=== PATIENT | female | born 1935 | race Hispanic/Latino ===

== ENCOUNTER 2020-06-04 13:37 | Inpatient (IN) | payer MEDICARE, OTHER ==
[~2020-06-04] VITALS: Ht 152.4 cm; Wt 70.3 kg
[~2020-06-04 13:37] MED LIST: AMLODIPINE BES2.5 MG PO; CYANOCOBAL1000 MCG/M; HYZAAR 100-12.1 EACH PO; IBUPROFEN600 MG PO; LEVOTHYROXINE75 MCG PO; LO-DOSE ASPIRIN81 MG PO; LOVASTATIN20 MG PO; METFORMIN HCL500 MG PO
[2020-06-04] MEDS ORDERED: PIPERACILLIN/TAZO 4.5 GM 100 ML IV STA (13:40)
[2020-06-04 14:32] LABS: BASOPHILS % 0.3 % (0.0-1.0); EOSINOPHILS # (AUTO) 0.2 (0.0-0.4); EOSINOPHILS % 1.3 % (0.0-6.0); HEMATOCRIT 42.5 % (34.2-44.1); HEMOGLOBIN 12.7 g/dL (12.0-16.0); MEAN CORPUSCULAR HEMOGLOBIN 27.7 pg (28-32); MEAN CORPUSCULAR HGB CONC 29.9 g/dL (31-35); MEAN CORPUSCULAR VOLUME 92.6 fL (81-99); MONOCYTES # (AUTO) 0.7 (0.2-0.8); MONOCYTES % 5.4 % (4.4-11.3); NEUTROPHILS # (AUTO) 9.8 (2.1-6.9); NEUTROPHILS % 76.6 % (38.7-80.0); PLATELET COUNT 252 x10e3/uL (140-360); RED BLOOD COUNT 4.59 x10e6/uL (3.6-5.1); RED CELL DISTRIBUTION WIDTH 15.1 % (11.7-14.4)
[2020-06-04 14:45] LABS: ALBUMIN 2.7 g/dL (3.5-5.0); ALBUMIN/GLOBULIN RATIO 0.6 (0.8-2.0); ANION GAP 13.6 mmol/L (8-16); CALCIUM 8.6 mg/dL (8.4-10.2); CREATININE, SERUM 1.05 mg/dL (0.57-1.11); POTASSIUM 3.6 mmol/L (3.5-5.1)
[2020-06-04] MEDS: VANCOMYCIN 750MG/NS 150ML IVPB 150 ML IV SCH (15:00)
[2020-06-04] MEDS ORDERED: SODIUM CHLORIDE 0.9% 500ML 500 ML IV ONE (15:15)
[2020-06-04] MEDS ORDERED: SODIUM CHLORIDE 0.9% 50ML 50 ML ONE (15:39)
[2020-06-04] MEDS ORDERED: IOPAMIDOL 370 MG/ML 200 ML INFUS..BTL INJ ONE (15:40)
[2020-06-04 18:29] LABS: BILIRUBIN,URINE NEGATIVE (NEGATIVE); CLARITY,URINE HAZY (CLEAR); COLOR,URINE YELLOW (YELLOW); KETONES,URINE NEGATIVE (NEGATIVE); LEUKOCYTE ESTERASE ,URINE SMALL (NEGATIVE); NITRITE,URINE POSITIVE (NEGATIVE); PROTEIN,URINE DIPSTICK 2+ (NEGATIVE); URINE UROBILINOGEN 0.2 mg/dL (0.2 - 1)
[2020-06-04 18:41] LABS: BACTERIA,URINE MANY /HPF; EPITHELIAL CELLS,URINE RARE /LPF
[2020-06-04 18:50] VITALS: BP 125/102
[2020-06-04 20:00] VITALS: BP 125/102
[2020-06-04] MEDS ORDERED: DEXTROSE 50% SYRINGE 50 ML IV PRN (20:45)
[2020-06-04] MEDS: INSULIN LISPRO 100 UNIT/1 ML 3ML VIAL SQ SCH (21:45)
[2020-06-05] VITALS (7 sets, daily range): BP systolic 117–154; BP diastolic 47–114
[2020-06-05] MEDS: ACETAMINOPHEN 325 MG TAB PO PRN ×3 (00:53→20:57)
[2020-06-05] MEDS ORDERED: SODIUM CHLORIDE 0.9% 250ML 250 ML ONE (01:31)
[2020-06-05] MEDS: VANCOMYCIN 750MG/NS 150ML IVPB 150 ML IV SCH ×2 (01:37→14:02)
[2020-06-05 05:12] LABS: BASOPHILS # (AUTO) 0.1 (0.0-0.1); BASOPHILS % 0.4 % (0.0-1.0); EOSINOPHILS # (AUTO) 0.1 (0.0-0.4); EOSINOPHILS % 0.7 % (0.0-6.0); HEMATOCRIT 38.7 % (34.2-44.1); HEMOGLOBIN 11.4 g/dL (12.0-16.0); LYMPHOCYTES # (AUTO) 1.5 (1.0-3.2); LYMPHOCYTES % 11.9 % (18.0-39.1); MEAN CORPUSCULAR HEMOGLOBIN 27.3 pg (28-32); MEAN CORPUSCULAR HGB CONC 29.5 g/dL (31-35); MEAN CORPUSCULAR VOLUME 92.6 fL (81-99); MONOCYTES # (AUTO) 0.8 (0.2-0.8); MONOCYTES % 6.2 % (4.4-11.3); NEUTROPHILS # (AUTO) 10.2 (2.1-6.9); NEUTROPHILS % 80.4 % (38.7-80.0); PLATELET COUNT 211 x10e3/uL (140-360); RED BLOOD COUNT 4.18 x10e6/uL (3.6-5.1); RED CELL DISTRIBUTION WIDTH 14.9 % (11.7-14.4)
[2020-06-05 05:32] LABS: ANION GAP 10.6 mmol/L (8-16); CALCIUM 8.1 mg/dL (8.4-10.2); CREATININE, SERUM 0.97 mg/dL (0.57-1.11); POTASSIUM 3.6 mmol/L (3.5-5.1)
[2020-06-05] MEDS: LEVOTHYROXINE SODIUM 75 MCG TAB PO SCH (07:30)
[2020-06-05] MEDS: INSULIN LISPRO 100 UNIT/1 ML 3ML VIAL SQ SCH ×4 (07:30→21:00)
[2020-06-05] MEDS: ASPIRIN 81 MG ENTERIC COATED PO SCH (09:00)
[2020-06-05] MEDS: LOSARTAN POTASSIUM 100 MG TAB PO SCH (09:00)
[2020-06-05] MEDS: HYDROCHLOROTHIAZIDE 25 MG TAB PO SCH (09:00)
[2020-06-05] MEDS: AMLODIPINE BESYLATE 5 MG TAB PO SCH (09:00)
[2020-06-05] MEDS ORDERED: SODIUM HYPOCHLORITE 0.25% 480 ML SOLN IR ONE (10:00)
[2020-06-05] MEDS ORDERED: METOPROLOL SUCC25 MG PO (12:16)
[2020-06-05] MEDS ORDERED: SEROQUEL50 MG PO (12:16)
[2020-06-05] MEDS ORDERED: GABAPENTIN100 MG PO (12:16)
[2020-06-05] MEDS ORDERED: CEFTRIAXONE SOD 1 GM/NS 50 ML 50 ML IV SCH (15:30)
[2020-06-05] MEDS: SIMVASTATIN 20 MG TAB PO SCH (20:56)
[2020-06-05] MEDS: QUETIAPINE FUMARATE 25 MG TAB PO PRN (20:56)
[2020-06-06] VITALS (7 sets, daily range): BP systolic 125–158; BP diastolic 38–99
[2020-06-06] MEDS: CEFTRIAXONE SOD 1 GM/NS 50 ML 50 ML IV SCH (01:00)
[2020-06-06] MEDS: VANCOMYCIN 750MG/NS 150ML IVPB 150 ML IV SCH ×2 (02:22→14:56)
[2020-06-06] MEDS: INSULIN LISPRO 100 UNIT/1 ML 3ML VIAL SQ SCH ×4 (07:30→21:00)
[2020-06-06] MEDS: LOSARTAN POTASSIUM 100 MG TAB PO SCH (09:21)
[2020-06-06] MEDS: LEVOTHYROXINE SODIUM 75 MCG TAB PO SCH (09:21)
[2020-06-06] MEDS: ASPIRIN 81 MG ENTERIC COATED PO SCH (09:21)
[2020-06-06] MEDS: QUETIAPINE FUMARATE 25 MG TAB PO PRN ×2 (09:22→20:59)
[2020-06-06] MEDS: HYDROCHLOROTHIAZIDE 25 MG TAB PO SCH (09:22)
[2020-06-06] MEDS: AMLODIPINE BESYLATE 5 MG TAB PO SCH (09:22)
[2020-06-06] MEDS ORDERED: LORAZEPAM INJ 2 MG/ML VIAL IV ONE (12:15)
[2020-06-06] MEDS: SIMVASTATIN 20 MG TAB PO SCH (20:59)
[2020-06-06] MEDS: ACETAMINOPHEN 325 MG TAB PO PRN (20:59)
[2020-06-07] VITALS (8 sets, daily range): BP systolic 101–149; BP diastolic 53–73
[2020-06-07] MEDS: CEFTRIAXONE SOD 1 GM/NS 50 ML 50 ML IV SCH (01:00)
[2020-06-07] MEDS: VANCOMYCIN 750MG/NS 150ML IVPB 150 ML IV SCH ×2 (02:00→14:00)
[2020-06-07] MEDS: LEVOTHYROXINE SODIUM 75 MCG TAB PO SCH (07:30)
[2020-06-07] MEDS: LOSARTAN POTASSIUM 100 MG TAB PO SCH (09:22)
[2020-06-07] MEDS: HYDROCHLOROTHIAZIDE 25 MG TAB PO SCH (09:22)
[2020-06-07] MEDS: ASPIRIN 81 MG ENTERIC COATED PO SCH (09:22)
[2020-06-07] MEDS: AMLODIPINE BESYLATE 5 MG TAB PO SCH (09:22)
[2020-06-07] MEDS: INSULIN LISPRO 100 UNIT/1 ML 3ML VIAL SQ SCH ×4 (10:35→21:00)
[2020-06-07 14:18] LABS: ALBUMIN 2.4 g/dL (3.5-5.0); ALBUMIN/GLOBULIN RATIO 0.6 (0.8-2.0); ANION GAP 14.5 mmol/L (8-16); CALCIUM 8.2 mg/dL (8.4-10.2); CREATININE, SERUM 1.1 mg/dL (0.57-1.11); POTASSIUM 3.5 mmol/L (3.5-5.1)
[2020-06-07 15:09] LABS: BASOPHILS # (AUTO) 0.1 (0.0-0.1); BASOPHILS % 0.4 % (0.0-1.0); EOSINOPHILS # (AUTO) 0.6 (0.0-0.4); EOSINOPHILS % 4.1 % (0.0-6.0); HEMATOCRIT 37.6 % (34.2-44.1); HEMOGLOBIN 10.8 g/dL (12.0-16.0); LYMPHOCYTES # (AUTO) 1.4 (1.0-3.2); LYMPHOCYTES % 9.7 % (18.0-39.1); MEAN CORPUSCULAR HEMOGLOBIN 27.3 pg (28-32); MEAN CORPUSCULAR HGB CONC 28.7 g/dL (31-35); MEAN CORPUSCULAR VOLUME 95.2 fL (81-99); MONOCYTES # (AUTO) 0.8 (0.2-0.8); MONOCYTES % 5.5 % (4.4-11.3); NEUTROPHILS # (AUTO) 11.6 (2.1-6.9); NEUTROPHILS % 79.7 % (38.7-80.0); PLATELET COUNT 179 x10e3/uL (140-360); RED BLOOD COUNT 3.95 x10e6/uL (3.6-5.1); RED CELL DISTRIBUTION WIDTH 15.3 % (11.7-14.4)
[2020-06-07] MEDS: SIMVASTATIN 20 MG TAB PO SCH (21:00)
[2020-06-08] VITALS (7 sets, daily range): BP systolic 139–168; BP diastolic 68–100
[2020-06-08] MEDS: CEFTRIAXONE SOD 1 GM/NS 50 ML 50 ML IV SCH (00:22)
[2020-06-08] MEDS: SODIUM HYPOCHLORITE 0.25% 480 ML SOLN IR SCH ×2 (03:00→09:00)
[2020-06-08] MEDS: LEVOTHYROXINE SODIUM 75 MCG TAB PO SCH (07:30)
[2020-06-08] MEDS: INSULIN LISPRO 100 UNIT/1 ML 3ML VIAL SQ SCH ×4 (07:30→21:00)
[2020-06-08] MEDS: AMLODIPINE BESYLATE 5 MG TAB PO SCH (08:49)
[2020-06-08] MEDS: LOSARTAN POTASSIUM 100 MG TAB PO SCH (08:49)
[2020-06-08] MEDS: ASPIRIN 81 MG ENTERIC COATED PO SCH (08:49)
[2020-06-08] MEDS: SODIUM CHLORIDE 0.9% 1000ML 1,000 ML IV SCH (14:39)
[2020-06-08] MEDS: SIMVASTATIN 20 MG TAB PO SCH (21:00)
[2020-06-09] VITALS (9 sets, daily range): BP systolic 68–170; BP diastolic 35–124
[2020-06-09] MEDS: CEFTRIAXONE SOD 1 GM/NS 50 ML 50 ML IV SCH (01:00)
[2020-06-09] MEDS: SODIUM CHLORIDE 0.9% 1000ML 1,000 ML IV SCH ×2 (03:50→15:25)
[2020-06-09 05:36] LABS: ANION GAP 11.1 mmol/L (8-16); BLOOD UREA NITROGEN 12 mg/dL (7-26); BUN/CREATININE RATIO 15 (6-25); CALCIUM 8.3 mg/dL (8.4-10.2); CARBON DIOXIDE 23 mmol/L (22-29); CHLORIDE 120 mmol/L (98-107); CREATININE, SERUM 0.81 mg/dL (0.57-1.11); EST GLOMERULAR FILTRATION RATE > 60 ML/MIN (60-); GLUCOSE 122 mg/dL (74-118); POTASSIUM 3.1 mmol/L (3.5-5.1); SODIUM 151 mmol/L (136-145)
[2020-06-09] MEDS: INSULIN LISPRO 100 UNIT/1 ML 3ML VIAL SQ SCH ×4 (07:30→21:00)
[2020-06-09 09:20] LABS: HEMATOCRIT 40.1 % (34.2-44.1); HEMOGLOBIN 11.9 g/dL (12.0-16.0); MEAN CORPUSCULAR HEMOGLOBIN 27.9 pg (28-32); MEAN CORPUSCULAR HGB CONC 29.7 g/dL (31-35); MEAN CORPUSCULAR VOLUME 94.1 fL (81-99); PLATELET COUNT 187 x10e3/uL (140-360); RED BLOOD COUNT 4.26 x10e6/uL (3.6-5.1); RED CELL DISTRIBUTION WIDTH 15.4 % (11.7-14.4)
[2020-06-09] MEDS ORDERED: POTASSIUM CHLORIDE 20 MEQ TAB CR PO ONE (09:35)
[2020-06-09] MEDS: LEVOTHYROXINE SODIUM 75 MCG TAB PO SCH (09:39)
[2020-06-09] MEDS: AMLODIPINE BESYLATE 5 MG TAB PO SCH (09:39)
[2020-06-09] MEDS: ASPIRIN 81 MG ENTERIC COATED PO SCH (09:39)
[2020-06-09] MEDS: LOSARTAN POTASSIUM 100 MG TAB PO SCH (09:39)
[2020-06-09 09:52] LABS: ANISOCYTOSIS SLIGHT; EOSINOPHILS % (MANUAL) 4 % (0-7); LYMPHOCYTES % (MANUAL) 15 % (19-48); MONOCYTES % (MANUAL) 2 % (3.4-9.0); NEUTROPHILS % (MANUAL) 75 % (40-74); PLATELET ESTIMATE ADEQUATE; PLATELET MORPHOLOGY COMMENT NORMAL; RBC MORPHOLOGY COMMENT NORMAL
[2020-06-09] MEDS: SODIUM HYPOCHLORITE 0.25% 480 ML SOLN IR SCH (10:30)
[2020-06-09] MEDS: CIPROFLOXACIN 500 MG TAB PO SCH (14:55)
[2020-06-09] MEDS: DOXYCYCLINE HYCLATE TABLET 100 MG TAB PO SCH (17:12)
[2020-06-09] MEDS: SIMVASTATIN 20 MG TAB PO SCH (22:07)
[2020-06-09] MEDS: ENOXAPARIN SOD INJ 40 MG/0.4 ML SYR SC SCH (22:09)
[2020-06-10] VITALS (8 sets, daily range): BP systolic 113–155; BP diastolic 56–77
[2020-06-10] MEDS: SODIUM CHLORIDE 0.9% 1000ML 1,000 ML IV SCH ×2 (04:45→18:05)
[2020-06-10 07:26] LABS: ANION GAP 10.5 mmol/L (8-16); CALCIUM 8.4 mg/dL (8.4-10.2); CREATININE, SERUM 0.93 mg/dL (0.57-1.11); POTASSIUM 3.5 mmol/L (3.5-5.1)
[2020-06-10] MEDS: INSULIN LISPRO 100 UNIT/1 ML 3ML VIAL SQ SCH ×4 (08:00→20:18)
[2020-06-10] MEDS: LEVOTHYROXINE SODIUM 75 MCG TAB PO SCH (09:58)
[2020-06-10] MEDS: ASPIRIN 81 MG ENTERIC COATED PO SCH (09:59)
[2020-06-10] MEDS: LOSARTAN POTASSIUM 100 MG TAB PO SCH (09:59)
[2020-06-10] MEDS: AMLODIPINE BESYLATE 5 MG TAB PO SCH (09:59)
[2020-06-10] MEDS: DOXYCYCLINE HYCLATE TABLET 100 MG TAB PO SCH ×2 (09:59→21:00)
[2020-06-10] MEDS: CIPROFLOXACIN 500 MG TAB PO SCH (09:59)
[2020-06-10] MEDS: SODIUM HYPOCHLORITE 0.25% 480 ML SOLN IR SCH (10:00)
[2020-06-10] MEDS: ENOXAPARIN SOD INJ 40 MG/0.4 ML SYR SC SCH (17:17)
[2020-06-11] VITALS (8 sets, daily range): BP systolic 151–161; BP diastolic 54–98
[2020-06-11] MEDS: SIMVASTATIN 20 MG TAB PO SCH ×2 (00:16→20:46)
[2020-06-11] MEDS: SODIUM CHLORIDE 0.9% 1000ML 1,000 ML IV SCH (06:22)
[2020-06-11] MEDS: INSULIN LISPRO 100 UNIT/1 ML 3ML VIAL SQ SCH ×4 (07:30→21:00)
[2020-06-11] MEDS: CIPROFLOXACIN 500 MG TAB PO SCH (09:30)
[2020-06-11] MEDS: ASPIRIN 81 MG ENTERIC COATED PO SCH (09:30)
[2020-06-11] MEDS: LOSARTAN POTASSIUM 100 MG TAB PO SCH (09:30)
[2020-06-11] MEDS: LEVOTHYROXINE SODIUM 75 MCG TAB PO SCH (09:30)
[2020-06-11] MEDS: AMLODIPINE BESYLATE 5 MG TAB PO SCH (09:31)
[2020-06-11] MEDS: DOXYCYCLINE HYCLATE TABLET 100 MG TAB PO SCH ×2 (09:31→20:46)
[2020-06-11] MEDS: SODIUM HYPOCHLORITE 0.25% 480 ML SOLN IR SCH (10:00)
[2020-06-11] MEDS: SODIUM CHLORIDE 0.45% 1,000 ML IV SCH (15:57)
[2020-06-11] MEDS: ENOXAPARIN SOD INJ 40 MG/0.4 ML SYR SC SCH (16:00)
[2020-06-12] VITALS (7 sets, daily range): BP systolic 97–151; BP diastolic 57–74
[2020-06-12] MEDS: SODIUM CHLORIDE 0.45% 1,000 ML IV SCH (03:52)
[2020-06-12 05:10] LABS: BASOPHILS % 0.5 % (0.0-1.0); EOSINOPHILS # (AUTO) 0.4 (0.0-0.4); EOSINOPHILS % 5.1 % (0.0-6.0); HEMATOCRIT 30.6 % (34.2-44.1); HEMOGLOBIN 9.1 g/dL (12.0-16.0); LYMPHOCYTES # (AUTO) 2.4 (1.0-3.2); LYMPHOCYTES % 29.4 % (18.0-39.1); MEAN CORPUSCULAR HEMOGLOBIN 27.2 pg (28-32); MEAN CORPUSCULAR HGB CONC 29.7 g/dL (31-35); MEAN CORPUSCULAR VOLUME 91.6 fL (81-99); MONOCYTES # (AUTO) 0.6 (0.2-0.8); MONOCYTES % 6.8 % (4.4-11.3); NEUTROPHILS # (AUTO) 4.7 (2.1-6.9); NEUTROPHILS % 57.6 % (38.7-80.0); PLATELET COUNT 106 x10e3/uL (140-360); RED BLOOD COUNT 3.34 x10e6/uL (3.6-5.1); RED CELL DISTRIBUTION WIDTH 15.4 % (11.7-14.4)
[2020-06-12 05:34] LABS: ANION GAP 8.7 mmol/L (8-16); BLOOD UREA NITROGEN 11 mg/dL (7-26); BUN/CREATININE RATIO 15 (6-25); CALCIUM 7.9 mg/dL (8.4-10.2); CARBON DIOXIDE 24 mmol/L (22-29); CHLORIDE 117 mmol/L (98-107); CREATININE, SERUM 0.72 mg/dL (0.57-1.11); EST GLOMERULAR FILTRATION RATE > 60 ML/MIN (60-); GLUCOSE 108 mg/dL (74-118); POTASSIUM 3.7 mmol/L (3.5-5.1); SODIUM 146 mmol/L (136-145)
[2020-06-12] MEDS: INSULIN LISPRO 100 UNIT/1 ML 3ML VIAL SQ SCH ×3 (07:30→15:53)
[2020-06-12] MEDS: LEVOTHYROXINE SODIUM 75 MCG TAB PO SCH (08:30)
[2020-06-12] MEDS: ASPIRIN 81 MG ENTERIC COATED PO SCH (09:25)
[2020-06-12] MEDS: AMLODIPINE BESYLATE 5 MG TAB PO SCH (09:25)
[2020-06-12] MEDS: CIPROFLOXACIN 500 MG TAB PO SCH (09:25)
[2020-06-12] MEDS: LOSARTAN POTASSIUM 100 MG TAB PO SCH (09:25)
[2020-06-12] MEDS: DOXYCYCLINE HYCLATE TABLET 100 MG TAB PO SCH (09:25)
[2020-06-12] MEDS: SODIUM HYPOCHLORITE 0.25% 480 ML SOLN IR SCH (10:00)
[2020-06-12] MEDS ORDERED: DEXTROSE 5%/0.45% SOD CHL 1,000 ML IV SCH (11:45)
[2020-06-12] MEDS ORDERED: DEXTROSE 5%/0.45% SOD CHL 1,000 ML IV ONE (12:04)
[2020-06-12] MEDS: ENOXAPARIN SOD INJ 40 MG/0.4 ML SYR SC SCH (16:27)
== END 2020-06-12 18:56 | disposition hospice, inpatient (51) | DRG 592 ==
LOC: ER 13:40 → ERHOLD 17:22 → MED/SURG2 18:51
PROVIDERS: ADMIT Internal Medicine; ATTEND Internal Medicine
PROC: 02HV33Z Insertion of Infusion Device into Superior Vena Cava, Percutaneous Approach (ICD-10-PCS; principal; 2020-06-05)
PROC: B548ZZA Ultrasonography of Superior Vena Cava, Guidance (ICD-10-PCS; 2020-06-05)
DX: L89.154 Pressure ulcer of sacral region, stage 4 (principal); J18.9 Pneumonia, unspecified organism; F03.91 Unspecified dementia, unspecified severity, with behavioral disturbance; E87.1 Hypo-osmolality and hyponatremia; M86.68 Other chronic osteomyelitis, other site; I10 Essential (primary) hypertension; E11.65 Type 2 diabetes mellitus with hyperglycemia; E03.9 Hypothyroidism, unspecified; E78.00 Pure hypercholesterolemia, unspecified; Z20.828 Contact with and (suspected) exposure to other viral communicable diseases; B96.4 Proteus (mirabilis) (morganii) as the cause of diseases classified elsewhere
CPT/HCPCS: 36415; 36568; 72193; 78315; 80048; 80053; 80202; 81001; 82948; 83605; 85007; 85025; 85027; 87040; 87071; 87086; 87186; 87205; 93005; 93971; 97139; 99251; 99285; A9503; J0696; J1650; J2060; J2543; J7030; J7040; J7050; Q9967; U0002